=== PATIENT | male | born 1935 | race Caucasian/White ===

== ENCOUNTER 2017-05-22 09:41 | Emergency (ER) | payer MEDICARE, OTHER ==
[~2017-05-22] VITALS: Ht 177.8 cm; Wt 68.0 kg
[~2017-05-22 09:41] MED LIST: TRAMADOL HYDROC50 MG PO
[2017-05-22] MEDS ORDERED: AMLODIPINE5 MG PO (09:50)
[2017-05-22] MEDS ORDERED: PRAVASTATIN20 MG PO (09:50)
[2017-05-22] MEDS ORDERED: MULTIVITAMI1 PO (09:51)
[2017-05-22] MEDS ORDERED: ASPIRIN EC325 MG PO (09:51)
[2017-05-22] MEDS ORDERED: MILK OF MAG30 ML/UDC PO (09:52)
[2017-05-22] MEDS ORDERED: TYLENOL325 MG PO (09:52)
[2017-05-22 10:01] VITALS: BP 146/67
== END 2017-05-22 10:24 ==
LOC: ED 09:41
DX: K40.90 Unilateral inguinal hernia, without obstruction or gangrene, not specified as recurrent (principal); R10.11 Right upper quadrant pain